=== PATIENT | female | born 1955 | race Caucasian/White ===

== ENCOUNTER → 2016-12-22 | Outpatient (CLI) | payer BC ==
--- NOTE | 2016-12-22 15:39 | DIAGNOSTIC IMAGING REPORT ---
RIGHT SHOULDER MIN 2 VIEWS ROUTINE CLINICAL HISTORY: Right shoulder pain. Right shoulder tendinitis. COMPARISON: None. DISCUSSION: The patient can internally and externally rotate fully. No fractures or dislocations are visualized. No destructive lesions are visualized. There are no visible particular calcifications. IMPRESSION: No significant bony abnormalities. Electronically signed by: Duke Adler M.D. 12/22/2016 3:38 PM Dictated Date/Time: 12/22/2016 3:37 PM
== END | disposition home or self-care (01) ==
LOC: C.RAD1850 15:18
PROVIDERS: ATTEND Internal Medicine
DX: M25.511 Pain in right shoulder (principal); M75.81 Other shoulder lesions, right shoulder; Z91.81 History of falling

== ENCOUNTER → 2017-01-09 | Outpatient (CLI) | payer BC ==
--- NOTE | 2017-01-09 09:07 | DIAGNOSTIC IMAGING REPORT ---
RIGHT CLAVICLE CLINICAL HISTORY: Right clavicular pain COMPARISON: None. DISCUSSION: 2 views are provided for interpretation. No fractures are visualized. No destructive lesions are evident. There is right apical pleural thickening. IMPRESSION: No fractures or destructive lesions are visualized. Electronically signed by: Duke Adler M.D. 01/09/2017 9:05 AM Dictated Date/Time: 01/09/2017 9:04 AM
== END | disposition home or self-care (01) ==
LOC: C.RAD1850 08:53
PROVIDERS: ATTEND Internal Medicine
DX: M89.8X1 Other specified disorders of bone, shoulder (principal)

== ENCOUNTER → 2018-01-24 | Outpatient (CLI) | payer OTHER ==
--- NOTE | 2018-01-24 10:13 | DIAGNOSTIC IMAGING REPORT ---
R ANKLE MIN 3 VIEWS ROUTINE CLINICAL HISTORY: M25.579 Ankle [id number] COMPARISON: None. DISCUSSION: There is an avulsion fracture arising from the lateral malleolar tip. This may be old. Correlation with the patient's site of pain and date of prior injuries is recommended. No additional fractures are visualized. IMPRESSION: Avulsion fracture arising from the lateral malleolar tip, possibly subacute or chronic. Clinical correlation is advocated Electronically signed by: Duke Adler M.D. 01/24/2018 10:12 AM Dictated Date/Time: 01/24/2018 10:10 AM
== END | disposition home or self-care (01) ==
LOC: C.RAD1850 10:01
PROVIDERS: ATTEND Internal Medicine
DX: S82.64XA Nondisplaced fracture of lateral malleolus of right fibula, initial encounter for closed fracture (principal); X58.XXXA Exposure to other specified factors, initial encounter